=== PATIENT | male | born 1995 | race Caucasian/White ===

== ENCOUNTER 2017-10-05 16:48 | Emergency (ER) | payer MEDICAID ==
[2017-10-05] MEDS ORDERED: Diphtheria,Pertussis(Acell),Tetanus Vaccine 0.5 ML SDV IM ONE (18:05)
[2017-10-05] MEDS ORDERED: Bacitracin Oint 1 GM U/D Packet TOP ONE (18:06)
--- NOTE | 2017-10-05 18:11 | EDM.PDOC ---
ED HPI GENERAL MEDICAL PROBLEM - General Chief Complaint: Laceration Stated Complaint: LACERATION ON LEFT HAND Time Seen by Provider: 10/05/17 18:00 Source of Information: Reports: Patient, Old Records History Limitations: Reports: No Limitations - History of Present Illness INITIAL COMMENTS - FREE TEXT/NARRATIVE: 22 yo male slipped with a knife during some construction and lacerated the dorsum of his L thumb. Is here for repair. 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) (none) - Related Data Allergies Allergy/AdvReac Type Severity Reaction Status Date / Time No Known Allergies Allergy Verified 10/05/17 17:25 Home Meds: Home Meds ARIPiprazole [Aripiprazole] 10/05/17 [History] Sertraline [Zoloft] 10/05/17 [History] Past Medical History Psychiatric History: Reports: ADHD, Anxiety, Depression - Past Surgical History HEENT Surgical History: Reports: Tonsillectomy Social & Family History - Tobacco Use Smoking Status *Q: Never Smoker ED ROS GENERAL - Review of Systems Review Of Systems: See Below Constitutional: Reports: No Symptoms Musculoskeletal: Reports: No Symptoms Skin: Reports: Wound Neurological: Reports: No Symptoms ED EXAM, SKIN/RASH Exam: See Below Exam Limited By: No Limitations General Appearance: Alert, WD/WN, No Apparent Distress Extremities: Other (wound to proximal, dorsal L thumb. ) Neurological: Alert, Oriented, CN II-XII Intact, Normal Cognition, No Motor/ Sensory Deficits Psychiatric: Normal Affect, Normal Mood Skin: Warm, Dry, Normal Color, No Rash, Wound/Incision Location, Skin: Upper Extremity, Left Characteristics: Linear Associated features: Tenderness. No: Warmth, Swelling, Induration, Inflammation ED SKIN PROCEDURES - Laceration/Wound Repair Left Proximal Dorsal Finger Lac/Wound length In cm: 2.6 Appearance: Subcutaneous, Linear, Clean Distal NVT: Neuro & Vascular Intact Anesthetic Type: Local Local Anesthesia - Lidocaine (Xylocaine): 1% Plain Local Anesthetic Volume: 3cc Skin Prep: Saline Exploration/Debridement/Repair: Wound Explored, No Foreign Material Found Closed with: Sutures Suture Size: other (5-0) # of Sutures: 7 Suture Type: Nylon, Simple Drain Placement: No Sterile Dressing Applied: Nurse Tetanus Status Addressed: Yes Complications: No Course - Vital Signs Last Recorded V/S: Last Vital Signs Temp 37.0 C 10/05/17 17:32 Pulse 87 10/05/17 17:32 Resp 14 10/05/17 17:32 BP 120/67 10/05/17 17:32 Pulse Ox 98 10/05/17 17:32 - Orders/Labs/Meds Orders: Active Orders 24 hr Category Date Time Status Vaccines to be Administered [RC] PER UNIT ROUTINE Care 10/05/17 18:06 Active Meds: Medications Discontinued Medications Generic Name Dose Route Start Last Admin Trade Name Yossi PRN Reason Stop Dose Admin Bacitracin 1 dose 10/05/17 18:06 Bacitracin Oint 1 Gm TOP 10/05/17 18:07 ONETIME ONE Diphtheria/Tetanus/Acell Pertussis 0.5 ml 10/05/17 18:05 Adacel IM 10/05/17 18:06 .ONCE ONE Lidocaine HCl 5 ml 10/05/17 18:06 Xylocaine-Mpf 1% INJECT 10/05/17 18:07 ONETIME ONE Departure - Departure Time of Disposition: 18:23 Disposition: Home, Self-Care 01 Condition: Good Clinical Impression: Thumb laceration Qualifiers: Encounter type: initial encounter Damage to nail status: without damage Foreign body presence: without foreign body Laterality: left Qualified Code(s): S61.012A - Laceration without foreign body of left thumb without damage to nail , initial encounter - Discharge Information Referrals: Modesto Smith MD [Primary Care Provider] - Forms: ED Department Discharge - My Orders Last 24 Hours: My Active Orders 10/05/17 18:06 Vaccines to be Administered [RC] PER UNIT ROUTINE - Assessment/Plan Last 24 Hours: My Active Orders 10/05/17 18:06 Vaccines to be Administered [RC] PER UNIT ROUTINE
== END 2017-10-05 18:45 | disposition home or self-care (01) ==
LOC: JP.ED 16:48
DX: S61.012A Laceration without foreign body of left thumb without damage to nail, initial encounter (principal); Z23 Encounter for immunization; W26.0XXA Contact with knife, initial encounter
CPT/HCPCS: 12002; 90471; 90715; 99283-25

== ENCOUNTER 2018-11-14 18:38 | Emergency (ER) | payer MEDICAID ==
--- NOTE | 2018-11-14 19:01 | EDM.PDOC ---
ED HPI GENERAL MEDICAL PROBLEM - General Chief Complaint: Burn Stated Complaint: BURNT FINGERS RIGHT HAND Time Seen by Provider: 11/14/18 19:00 Source of Information: Reports: Patient History Limitations: Reports: No Limitations - History of Present Illness INITIAL COMMENTS - FREE TEXT/NARRATIVE: burned fingers while grilling. He has mild pain. His last tetanus was in 2018. Onset: Today, Sudden Location: Reports: Upper Extremity, Right right 3rd & 4th digit Pain Score (Numeric/FACES): 4 - Related Data Allergies Allergy/AdvReac Type Severity Reaction Status Date / Time No Known Allergies Allergy Verified 11/14/18 18:49 Home Meds: Home Meds ARIPiprazole [Aripiprazole] 1 tab PO DAILY 10/05/17 [History] Sertraline [Zoloft] 200 mg PO DAILY 10/05/17 [History] Past Medical History Psychiatric History: Reports: ADHD, Anxiety, Depression - Past Surgical History HEENT Surgical History: Reports: Tonsillectomy Social & Family History - Tobacco Use Smoking Status *Q: Current Status Unknown Tobacco Use Comment: vapes - Caffeine Use Caffeine Use: Reports: Energy Drinks, Soda, Tea - Recreational Drug Use Recreational Drug Use: No ED ROS GENERAL - Review of Systems Review Of Systems: See Below Skin: Reports: Other (pain noted) ED EXAM, BURN/SMOKE INHALATION - Physical Exam Exam: See Below Exam Limited By: No Limitations General Appearance: Alert, WD/WN, No Apparent Distress Extremities: Other (mild 1st degree burn middle two fingers of right hand. ) Neurological: Alert, Oriented, Other (Normal sensation) Course - Vital Signs Last Recorded V/S: Last Vital Signs Temp 36.2 C 11/14/18 18:50 Pulse 76 11/14/18 18:50 Resp 16 11/14/18 18:50 BP 121/79 11/14/18 18:50 Pulse Ox 96 11/14/18 18:50 The patient was seen and injury assessed. Dressings applied. Will change dressings daily and f/u with pcp if problems. He can take Tylenol or ibuprofen for pain. Departure - Departure Time of Disposition: 19:10 Disposition: Admitted As Inpatient 67 Condition: Good Clinical Impression: Burn NOS finger - Discharge Information *PRESCRIPTION DRUG MONITORING PROGRAM REVIEWED*: No *COPY OF PRESCRIPTION DRUG MONITORING REPORT IN PATIENT ADITI: No Referrals: Smith,Modesto C, MD [Primary Care Provider] - Forms: ED Department Discharge
[2018-11-14] MEDS ORDERED: Bacitracin Oint 1 GM U/D Packet TOP ONE (19:08)
== END 2018-11-14 19:24 | disposition critical access hospital (66) ==
LOC: JP.ED 18:38
DX: T23.131A Burn of first degree of multiple right fingers (nail), not including thumb, initial encounter (principal); F41.9 Anxiety disorder, unspecified; F32.9 Major depressive disorder, single episode, unspecified; F90.9 Attention-deficit hyperactivity disorder, unspecified type; Z98.890 Other specified postprocedural states; Z79.899 Other long term (current) drug therapy; X08.8XXA Exposure to other specified smoke, fire and flames, initial encounter
CPT/HCPCS: 99283